=== PATIENT | female | born 1970 | race Caucasian/White ===

== ENCOUNTER 2021-11-14 13:50 | Emergency (ER) | payer BC ==
[2021-11-14] MEDS ORDERED: Diphtheria,Pertussis(Acell),Tetanus Vaccine 0.5 ML Syringe IM ONE (15:10)
== END 2021-11-14 15:30 | disposition home or self-care (01) ==
LOC: JP.ED 13:50
DX: S70.372A Other superficial bite of left thigh, initial encounter (principal); Z23 Encounter for immunization; W54.0XXA Bitten by dog, initial encounter
CPT/HCPCS: 90471; 90715; 99283-25